=== PATIENT | female | born 1960 | race Caucasian/White ===

== ENCOUNTER 2018-03-29 13:08 | Day surgery (SDC) | payer BC ==
[2018-03-29] MEDS ORDERED: FENTAnyl 50 MCG/ML VIAL (15:31)
[2018-03-29] MEDS ORDERED: PROPOFOL 20 ML (15:31)
== END 2018-03-29 18:06 | disposition home or self-care (01) ==
LOC: GIL 13:08
DX: Z12.11 Encounter for screening for malignant neoplasm of colon (principal); Z87.891 Personal history of nicotine dependence
CPT/HCPCS: 45378